=== PATIENT | female | born 1975 | race Caucasian/White ===

== ENCOUNTER → 2018-02-03 | Outpatient (CLI) | payer OTHER ==
[2018-02-03 17:49] LABS: BASOPHILS ABSOLUTE AUTO 0.09 K/mm3 (0.00-0.23); BASOPHILS PERCENT AUTO 1 % (0-2); EOSINOPHILS ABSOLUTE AUTO 0.18 K/mm3 (0.00-0.68); EOSINOPHILS PERCENT AUTO 2 % (0-6); Hematocrit 41.5 % (33.0-51.0); Hemoglobin 13.3 g/dL (11.5-16.0); IMMATURE GRAN ABSOLUTE AUTO 0.04 K/mm3 (0.00-0.10); IMMATURE GRAN PERCENT AUTO 0 % (0-1); LYMPHOCYTES ABSOLUTE AUTO 2.11 K/mm3 (0.84-5.20); LYMPHOCYTES PERCENT AUTO 20 % (21-46); MONOCYTES ABSOLUTE AUTO 0.74 K/mm3 (0.16-1.47); MONOCYTES PERCENT AUTO 7 % (4-13); Mean Corpuscular HGB 28.7 pg (26.0-34.0); Mean Corpuscular Volume 89 fL (80-100); Mean Platelet Volume 12.1 fL (9.1-12.4); NEUTROPHILS ABSOLUTE AUTO 7.32 K/mm3 (1.96-9.15); NEUTROPHILS PERCENT AUTO 70 % (41-73); Platelet Count 267 K/mm3 (150-400); RDW Coefficient Variation 15.3 % (11.7-14.2); RDW Standard Deviation 50.5 fL (35.1-46.3); Red Blood Cell Count 4.64 M/mm3 (3.80-5.20); White Blood Cell Count 10.48 K/mm3 (4.00-11.30)
[2018-02-03 18:32] LABS: Alanine Aminotransfer (ALT/SGP 24 U/L (12-78); Albumin, Blood 3.6 g/dL (3.4-5.0); Albumin/Globulin Ratio 1.1 (0.8-1.8); Alk Phos 59 U/L (50-136); Anion Gap 7 mmol/L (6-16); Aspartate Aminotrans (AST/SGOT 16 U/L (12-37); Bilirubin, Total 0.3 mg/dL (0.1-1.0); Blood Urea Nitrogen 8 mg/dL (8-24); Bun/Creatinine Ratio 9.4 (12.0-20.0); CO2, Blood 28 mmol/L (21-32); Calcium, Blood 8.8 mg/dL (8.5-10.1); Chloride, Blood 106 mmol/L (98-108); Creatinine, Blood 0.85 mg/dL (0.40-1.00); Free Thyroxine 0.46 ng/dL (0.70-1.60); Globulin, Blood 3.4 g/dL (2.2-4.0); Glomerular Filtration Rate >60 (60-); Glucose, Blood 82 mg/dL (70-99); Potassium, Blood 4.5 mmol/L (3.5-5.5); Sodium, Blood 141 mmol/L (136-145)
== END | disposition home or self-care (01) ==
LOC: LAB SHORT 11:00 → LAB 11:00
PROVIDERS: Nurse Practitioner Adult Health
DX: E03.9 Hypothyroidism, unspecified (principal); E78.5 Hyperlipidemia, unspecified; G43.709 Chronic migraine without aura, not intractable, without status migrainosus; K21.9 Gastro-esophageal reflux disease without esophagitis; M62.830 Muscle spasm of back; R73.03 Prediabetes; M54.5 Low back pain
CPT/HCPCS: 80053; 84439; 84443; 85025; 87077; 87086; 87186

== ENCOUNTER 2018-04-08 08:43 | Day surgery (SDC) | payer OTHER | END 2018-04-08 22:36 | disposition home or self-care (01) | LOC: ORSCMMR 08:43 → ORD 09:30 → ORSCMMR 09:30 | PROVIDERS: Internal Medicine Gastroenterology | PROC: 0DB98ZX Excision of Duodenum, Via Natural or Artificial Opening Endoscopic, Diagnostic (ICD-10-PCS; principal; 2018-04-08 09:30) | PROC: 0DB88ZX Excision of Small Intestine, Via Natural or Artificial Opening Endoscopic, Diagnostic (ICD-10-PCS; principal; 2018-04-08 09:30) | PROC: 0DB58ZX Excision of Esophagus, Via Natural or Artificial Opening Endoscopic, Diagnostic (ICD-10-PCS; principal; 2018-04-08 09:30) | PROC: 0DB68ZX Excision of Stomach, Via Natural or Artificial Opening Endoscopic, Diagnostic (ICD-10-PCS; principal; 2018-04-08 09:30) | PROC: 0DB48ZX Excision of Esophagogastric Junction, Via Natural or Artificial Opening Endoscopic, Diagnostic (ICD-10-PCS; principal; 2018-04-08 09:30) | DX: K21.9 Gastro-esophageal reflux disease without esophagitis (principal); B96.81 Helicobacter pylori [H. pylori] as the cause of diseases classified elsewhere; K31.9 Disease of stomach and duodenum, unspecified; K44.9 Diaphragmatic hernia without obstruction or gangrene; E03.9 Hypothyroidism, unspecified; E78.00 Pure hypercholesterolemia, unspecified; Z79.899 Other long term (current) drug therapy | CPT/HCPCS: 88305; 88342; J7030 ==

== ENCOUNTER → 2018-11-16 | Outpatient (CLI) | payer OTHER ==
[2018-11-16 20:00] LABS: Free Thyroxine 0.83 ng/dL (0.70-1.60)
[2018-11-16 20:03] LABS: Thyroid Stimulating Hormone 5.62 uIU/mL (0.360-4.800)
== END ==
LOC: LAB 18:17 → LAB SHORT 18:17
PROVIDERS: Nurse Practitioner Family
DX: E03.9 Hypothyroidism, unspecified (principal)
CPT/HCPCS: 84439; 84443

== ENCOUNTER → 2018-12-06 | Outpatient (CLI) | payer OTHER ==
[2018-12-06 19:20] LABS: BASOPHILS ABSOLUTE AUTO 0.05 K/mm3 (0.00-0.23); BASOPHILS PERCENT AUTO 1 % (0-2); EOSINOPHILS ABSOLUTE AUTO 0.06 K/mm3 (0.00-0.68); EOSINOPHILS PERCENT AUTO 1 % (0-6); Hemoglobin 12.1 g/dL (11.5-16.0); IMMATURE GRAN ABSOLUTE AUTO 0.02 K/mm3 (0.00-0.10); IMMATURE GRAN PERCENT AUTO 0 % (0-1); LYMPHOCYTES ABSOLUTE AUTO 1.43 K/mm3 (0.84-5.20); LYMPHOCYTES PERCENT AUTO 19 % (21-46); MONOCYTES ABSOLUTE AUTO 0.41 K/mm3 (0.16-1.47); MONOCYTES PERCENT AUTO 6 % (4-13); Mean Corpuscular HGB 27.6 pg (26.0-34.0); Mean Corpuscular Volume 89 fL (80-100); NEUTROPHILS ABSOLUTE AUTO 5.46 K/mm3 (1.96-9.15); NEUTROPHILS PERCENT AUTO 74 % (41-73); Platelet Count 198 K/mm3 (150-400); RDW Coefficient Variation 14.6 % (11.7-14.2); RDW Standard Deviation 47.8 fL (35.1-46.3); Red Blood Cell Count 4.39 M/mm3 (3.80-5.20); White Blood Cell Count 7.43 K/mm3 (4.00-11.30)
[2018-12-06 19:24] LABS: Mean Platelet Volume 13.1 fL (9.1-12.4)
[2018-12-06 19:39] LABS: Alanine Aminotransfer (ALT/SGP 28 U/L (12-78); Albumin, Blood 3.6 g/dL (3.4-5.0); Albumin/Globulin Ratio 1.1 (0.8-1.8); Alk Phos 59 U/L (50-136); Anion Gap 5 mmol/L (6-16); Aspartate Aminotrans (AST/SGOT 16 U/L (12-37); Bilirubin, Total 0.3 mg/dL (0.1-1.0); Blood Urea Nitrogen 8 mg/dL (8-24); Bun/Creatinine Ratio 8.9 (12.0-20.0); CHOL/HDL RATIO 3.7; CO2, Blood 25 mmol/L (21-32); Calcium, Blood 8.7 mg/dL (8.5-10.1); Chloride, Blood 110 mmol/L (98-108); Cholesterol 166 mg/dL (50-200); Globulin, Blood 3.4 g/dL (2.2-4.0); Glomerular Filtration Rate >60 (60-); Glucose, Blood 83 mg/dL (70-99); HDL Cholesterol 45 mg/dL (>39); LDL/HDL RATIO 2.2; Low Density Lipoprotein Chol 101 mg/dL (0-110); Potassium, Blood 3.9 mmol/L (3.5-5.5); Sodium, Blood 140 mmol/L (136-145); Triglycerides 99 mg/dL (30-160); Very Low Density Lipoprot Chol 19 mg/dL (6-32)
== END ==
LOC: LAB SHORT 18:45 → LAB 18:45
PROVIDERS: Nurse Practitioner Family
DX: E78.2 Mixed hyperlipidemia (principal); R73.03 Prediabetes
CPT/HCPCS: 80053; 80061; 85025

== ENCOUNTER 2018-12-21 11:13 | Emergency (ER) | payer OTHER ==
[~2018-12-21] VITALS: Ht 157.5 cm; Wt 68.0 kg
[2018-12-21] MEDS ORDERED: Norco 5-325 Ta1 EACH PO (12:13)
== END 2018-12-21 12:44 | disposition home or self-care (01) ==
LOC: ER 11:13
DX: S62.316A Displaced fracture of base of fifth metacarpal bone, right hand, initial encounter for closed fracture (principal); W22.8XXA Striking against or struck by other objects, initial encounter; Z88.0 Allergy status to penicillin; Z88.8 Allergy status to other drugs, medicaments and biological substances
CPT/HCPCS: 29125; 73130; 99283-25; A9270-GY

== ENCOUNTER → 2019-03-24 | Outpatient (CLI) | payer OTHER ==
[~2019-03-24] MED LIST: Norco 5-325 Ta1 EACH PO
[2019-03-24 18:09] LABS: BASOPHILS ABSOLUTE AUTO 0.06 K/mm3 (0.00-0.23); BASOPHILS PERCENT AUTO 1 % (0-2); EOSINOPHILS ABSOLUTE AUTO 0.13 K/mm3 (0.00-0.68); EOSINOPHILS PERCENT AUTO 2 % (0-6); Hematocrit 39.4 % (33.0-51.0); Hemoglobin 12.1 g/dL (11.5-16.0); IMMATURE GRAN ABSOLUTE AUTO 0.01 K/mm3 (0.00-0.10); IMMATURE GRAN PERCENT AUTO 0 % (0-1); LYMPHOCYTES ABSOLUTE AUTO 2.11 K/mm3 (0.84-5.20); LYMPHOCYTES PERCENT AUTO 35 % (21-46); MONOCYTES ABSOLUTE AUTO 0.53 K/mm3 (0.16-1.47); MONOCYTES PERCENT AUTO 9 % (4-13); Mean Corpuscular HGB 27.3 pg (26.0-34.0); Mean Corpuscular HGB Conc 30.7 g/dL (31.5-36.5); Mean Corpuscular Volume 89 fL (80-100); NEUTROPHILS PERCENT AUTO 53 % (41-73); Platelet Count 180 K/mm3 (150-400); RDW Coefficient Variation 15.9 % (11.7-14.2); RDW Standard Deviation 52.8 fL (35.1-46.3); Red Blood Cell Count 4.43 M/mm3 (3.80-5.20); White Blood Cell Count 6.04 K/mm3 (4.00-11.30)
[2019-03-24 18:11] LABS: Mean Platelet Volume 13.5 fL (9.1-12.4)
[2019-03-24 18:42] LABS: Alanine Aminotransfer (ALT/SGP 21 U/L (12-78); Albumin, Blood 3.7 g/dL (3.4-5.0); Albumin/Globulin Ratio 1.1 (0.8-1.8); Alk Phos 54 U/L (50-136); Anion Gap 7 mmol/L (6-16); Aspartate Aminotrans (AST/SGOT 20 U/L (12-37); Bilirubin, Total 0.3 mg/dL (0.1-1.0); Blood Urea Nitrogen 10 mg/dL (8-24); Bun/Creatinine Ratio 9.7 (12.0-20.0); CHOL/HDL RATIO 5.7; CO2, Blood 24 mmol/L (21-32); Calcium, Blood 8.6 mg/dL (8.5-10.1); Chloride, Blood 110 mmol/L (98-108); Cholesterol 244 mg/dL (50-200); Creatinine, Blood 1.03 mg/dL (0.40-1.00); Free Thyroxine 0.71 ng/dL (0.70-1.60); Globulin, Blood 3.5 g/dL (2.2-4.0); Glomerular Filtration Rate >60 (60-); Glucose, Blood 93 mg/dL (70-99); HDL Cholesterol 43 mg/dL (>39); Low Density Lipoprotein Chol 172 mg/dL (0-110); Potassium, Blood 4.1 mmol/L (3.5-5.5); Sodium, Blood 141 mmol/L (136-145); Total Protein, Blood 7.2 g/dL (6.4-8.2); Triglycerides 144 mg/dL (30-160); Very Low Density Lipoprot Chol 28 mg/dL (6-32)
== END | disposition home or self-care (01) ==
LOC: LAB 17:19 → LAB SHORT 17:19
PROVIDERS: Nurse Practitioner Family
DX: E78.5 Hyperlipidemia, unspecified (principal); E03.9 Hypothyroidism, unspecified
CPT/HCPCS: 80053; 80061; 84439; 84443; 85025

== ENCOUNTER 2019-10-10 10:56 | Emergency (ER) | payer OTHER ==
[~2019-10-10] VITALS: Ht 157.5 cm; Wt 63.5 kg
[2019-10-10 11:37] LABS: BASOPHILS ABSOLUTE AUTO 0.07 K/mm3 (0.00-0.23); BASOPHILS PERCENT AUTO 1 % (0-2); EOSINOPHILS ABSOLUTE AUTO 0.11 K/mm3 (0.00-0.68); EOSINOPHILS PERCENT AUTO 2 % (0-6); Hematocrit 38.3 % (33.0-51.0); Hemoglobin 12.2 g/dL (11.5-16.0); IMMATURE GRAN ABSOLUTE AUTO 0.01 K/mm3 (0.00-0.10); IMMATURE GRAN PERCENT AUTO 0 % (0-1); LYMPHOCYTES ABSOLUTE AUTO 2.08 K/mm3 (0.84-5.20); LYMPHOCYTES PERCENT AUTO 28 % (21-46); MONOCYTES ABSOLUTE AUTO 0.51 K/mm3 (0.16-1.47); MONOCYTES PERCENT AUTO 7 % (4-13); Mean Corpuscular HGB 27.9 pg (26.0-34.0); Mean Corpuscular HGB Conc 31.9 g/dL (31.5-36.5); Mean Corpuscular Volume 87 fL (80-100); Mean Platelet Volume 11.9 fL (9.1-12.4); NEUTROPHILS ABSOLUTE AUTO 4.73 K/mm3 (1.96-9.15); NEUTROPHILS PERCENT AUTO 63 % (41-73); Platelet Count 241 K/mm3 (150-400); RDW Standard Deviation 51.1 fL (35.1-46.3); Red Blood Cell Count 4.38 M/mm3 (3.80-5.20); White Blood Cell Count 7.51 K/mm3 (4.00-11.30)
[2019-10-10 12:08] LABS: Alanine Aminotransfer (ALT/SGP 28 U/L (12-78); Albumin, Blood 3.5 g/dL (3.4-5.0); Alk Phos 48 U/L (50-136); Anion Gap 10 mmol/L (6-16); Aspartate Aminotrans (AST/SGOT 27 U/L (12-37); Bilirubin, Total 0.2 mg/dL (0.1-1.0); Blood Urea Nitrogen 13 mg/dL (8-24); Bun/Creatinine Ratio 13.1 (12.0-20.0); CO2, Blood 22 mmol/L (21-32); Calcium, Blood 8.7 mg/dL (8.5-10.1); Chloride, Blood 108 mmol/L (98-108); Creatinine, Blood 0.99 mg/dL (0.40-1.00); Globulin, Blood 3.6 g/dL (2.2-4.0); Glomerular Filtration Rate >60 (60-); Glucose, Blood 91 mg/dL (70-99); Sodium, Blood 140 mmol/L (136-145); Total Protein, Blood 7.1 g/dL (6.4-8.2); Troponin I <0.015 ng/mL (0.000-0.040)
[2019-10-10] MEDS ORDERED: IBUP600 PO (14:59)
[2019-10-10] MEDS ORDERED: PANT40 PO (15:16)
[2019-10-10] MEDS ORDERED: TOPI50 PO (15:16)
[2019-10-10] MEDS ORDERED: AMIT50 PO (15:16)
[2019-10-10] MEDS ORDERED: LEVSOD112 PO (15:16)
== END 2019-10-10 15:14 | disposition home or self-care (01) ==
LOC: ER 10:56
PROVIDERS: Emergency Medicine
DX: R07.9 Chest pain, unspecified (principal); E03.9 Hypothyroidism, unspecified; Z88.0 Allergy status to penicillin; Z88.6 Allergy status to analgesic agent
CPT/HCPCS: 71046; 80053; 84484; 85025; 93005; 93010; 96374-59; 99285-25; J2405

== ENCOUNTER → 2019-10-26 | Outpatient (CLI) | payer OTHER ==
[~2019-10-26] MED LIST changes: +AMIT50 PO; +IBUP600 PO; +LEVSOD112 PO; +PANT40 PO; +TOPI50 PO
[2019-10-26 18:03] LABS: Alanine Aminotransfer (ALT/SGP 25 U/L (12-78); Albumin, Blood 3.9 g/dL (3.4-5.0); Albumin/Globulin Ratio 1.1 (0.8-1.8); Alk Phos 50 U/L (50-136); Anion Gap 1 mmol/L (6-16); Aspartate Aminotrans (AST/SGOT 25 U/L (12-37); Bilirubin, Total 0.3 mg/dL (0.1-1.0); Blood Urea Nitrogen 11 mg/dL (8-24); Bun/Creatinine Ratio 11.6 (12.0-20.0); CHOL/HDL RATIO 5.2; CO2, Blood 28 mmol/L (21-32); Calcium, Blood 8.7 mg/dL (8.5-10.1); Chloride, Blood 107 mmol/L (98-108); Cholesterol 280 mg/dL (50-200); Creatinine, Blood 0.95 mg/dL (0.40-1.00); Free Thyroxine 0.52 ng/dL (0.70-1.60); Globulin, Blood 3.6 g/dL (2.2-4.0); Glomerular Filtration Rate >60 (60-); Glucose, Blood 79 mg/dL (70-99); HDL Cholesterol 54 mg/dL (>39); LDL Direct Measurement 196 mg/dL (0-130); LDL/HDL RATIO 3.9; Low Density Lipoprotein Chol 208 mg/dL (0-110); Magnesium, Blood 2.1 mg/dL (1.6-2.4); Potassium, Blood 4.3 mmol/L (3.5-5.5); Sodium, Blood 136 mmol/L (136-145); Total Protein, Blood 7.5 g/dL (6.4-8.2); Triglycerides 89 mg/dL (30-160); Very Low Density Lipoprot Chol 17 mg/dL (6-32)
== END | disposition home or self-care (01) ==
LOC: LAB 16:33 → LAB SHORT 16:33
PROVIDERS: Nurse Practitioner Family
DX: E03.9 Hypothyroidism, unspecified (principal); I20.9 Angina pectoris, unspecified; E78.5 Hyperlipidemia, unspecified; R07.9 Chest pain, unspecified; R06.02 Shortness of breath; R94.30 Abnormal result of cardiovascular function study, unspecified
CPT/HCPCS: 80053; 80061; 83721; 83735; 83880; 84439; 84443

== ENCOUNTER 2019-11-10 07:59 | Day surgery (SDC) | payer OTHER ==
[~2019-11-10] VITALS: Ht 160 cm; Wt 67.0 kg
[2019-11-10] MEDS ORDERED: CLOP75 PO (08:28)
[2019-11-10] MEDS ORDERED: ATOR80 PO (08:28)
== END 2019-11-10 09:48 | disposition home or self-care (01) ==
LOC: CT 07:59 → ORD 07:59 → CT 09:00 → ORD 09:48
DX: R07.9 Chest pain, unspecified (principal); I10 Essential (primary) hypertension; E78.5 Hyperlipidemia, unspecified; E11.9 Type 2 diabetes mellitus without complications; K21.9 Gastro-esophageal reflux disease without esophagitis; E03.9 Hypothyroidism, unspecified; Z79.899 Other long term (current) drug therapy; Z88.6 Allergy status to analgesic agent; Z88.0 Allergy status to penicillin; Z87.891 Personal history of nicotine dependence; Z82.49 Family history of ischemic heart disease and other diseases of the circulatory system
CPT/HCPCS: 75574; Q9967

== ENCOUNTER 2020-09-07 17:37 | Emergency (ER) | payer OTHER ==
[~2020-09-07] VITALS: Ht 157.5 cm; Wt 64.4 kg
[~2020-09-07 17:37] MED LIST changes: +ATOR80 PO; +CLOP75 PO
== END 2020-09-07 21:22 | disposition home or self-care (01) ==
LOC: ER 17:37
DX: S61.213A Laceration without foreign body of left middle finger without damage to nail, initial encounter (principal); Z88.0 Allergy status to penicillin; Z88.2 Allergy status to sulfonamides; W25.XXXA Contact with sharp glass, initial encounter; Y92.89 Other specified places as the place of occurrence of the external cause; Y99.0 Civilian activity done for income or pay
CPT/HCPCS: 12001; 73130; 99282-25

== ENCOUNTER → 2020-11-05 | Outpatient (CLI) | payer OTHER ==
[~2020-11-05] MED LIST changes: +CLOP75
[2020-11-06 12:50] LABS: Source, Urine Clean Catch
[2020-11-06 13:03] LABS: White Blood Cells, Urine 0-2 /hpf (0-5)
[2020-11-06 13:04] LABS: Bacteria Rare /hpf; Squamous Epithelial Cells Rare /hpf (Few)
== END ==
LOC: LAB SHORT 16:00 → PLD 16:00
PROVIDERS: Nurse Practitioner Family
DX: R35.0 Frequency of micturition (principal); R31.9 Hematuria, unspecified
CPT/HCPCS: 81015; 87077; 87086; 87186

== ENCOUNTER 2020-12-28 12:56 | Observation (INO) | payer OTHER ==
[~2020-12-28] VITALS: Ht 160 cm; Wt 70.3 kg
[~2020-12-28 12:56] MED LIST changes: -CLOP75
[2020-12-28] MEDS ORDERED: CLOP75 (13:52)
[2020-12-28 13:57] LABS: Source, Urine Clean Catch
[2020-12-28 14:05] LABS: BASOPHILS PERCENT AUTO 1 % (0-2); EOSINOPHILS ABSOLUTE AUTO 0.04 K/mm3 (0.00-0.68); EOSINOPHILS PERCENT AUTO 0 % (0-6); Hematocrit 40.9 % (33.0-51.0); Hemoglobin 13.4 g/dL (11.5-16.0); IMMATURE GRAN ABSOLUTE AUTO 0.04 K/mm3 (0.00-0.10); IMMATURE GRAN PERCENT AUTO 0 % (0-1); LYMPHOCYTES ABSOLUTE AUTO 2.13 K/mm3 (0.84-5.20); LYMPHOCYTES PERCENT AUTO 21 % (21-46); MONOCYTES ABSOLUTE AUTO 0.46 K/mm3 (0.16-1.47); MONOCYTES PERCENT AUTO 5 % (4-13); Mean Corpuscular HGB 28.3 pg (26.0-34.0); Mean Corpuscular HGB Conc 32.8 g/dL (31.5-36.5); Mean Corpuscular Volume 86 fL (80-100); Mean Platelet Volume 11.3 fL (9.1-12.4); NEUTROPHILS ABSOLUTE AUTO 7.56 K/mm3 (1.96-9.15); NEUTROPHILS PERCENT AUTO 73 % (41-73); Platelet Count 268 K/mm3 (150-400); RDW Coefficient Variation 16.5 % (11.7-14.2); RDW Standard Deviation 51.8 fL (35.1-46.3); Red Blood Cell Count 4.74 M/mm3 (3.80-5.20); White Blood Cell Count 10.33 K/mm3 (4.00-11.30)
[2020-12-28 14:05] LABS: Appearance, Urine Hazy (Clear); Bilirubin, Urine Neg (Neg); Blood, Urine 1+ (Neg); Color, Urine Yellow (P-Yellow); Glucose Qualitative, Urine Neg (Neg); Ketones, Urine Neg (Neg); Leukocyte Esterase, Urine 3+ (Neg); Nitrite, Urine Pos (Neg); Protein, Urine Neg (Neg); Urobilinogen, Urine NORM (Normal)
[2020-12-28 14:13] LABS: White Blood Cells, Urine 25-50 /hpf (0-5)
[2020-12-28 14:14] LABS: Bacteria Many /hpf; Squamous Epithelial Cells Few /hpf (Few)
[2020-12-28 14:19] LABS: U Amphetamine Screen Not Detected; U Barbituate Screen Not Detected; U Benzodiazapine Screen Not Detected; U Buprenorphine Screen Not Detected; U Cannabinoids Screen DETECTED; U Cocaine Screen Not Detected; U Methadone Screen Not Detected; U Methamphetamine Screen Not Detected; U Opiates Screen Not Detected; U Oxycodone Screen Not Detected; U Phencyclidine Screen Not Detected; U Propoxyphene Screen Not Detected
[2020-12-28 14:36] LABS: Alanine Aminotransfer (ALT/SGP 32 U/L (12-78); Alk Phos 65 U/L (50-136); Anion Gap 5 mmol/L (6-16); Aspartate Aminotrans (AST/SGOT 26 U/L (12-37); Bilirubin, Total 0.4 mg/dL (0.1-1.0); Blood Urea Nitrogen 10 mg/dL (8-24); Bun/Creatinine Ratio 9.9 (12.0-20.0); CO2, Blood 24 mmol/L (21-32); Calcium, Blood 9.1 mg/dL (8.5-10.1); Chloride, Blood 106 mmol/L (98-108); Creatinine, Blood 1.01 mg/dL (0.40-1.00); Ethanol (Alcohol), Blood, Med <3 mg/dL; Globulin, Blood 3.9 g/dL (2.2-4.0); Glomerular Filtration Rate >60 (60-); Glucose, Blood 96 mg/dL (70-99); Potassium, Blood 3.9 mmol/L (3.5-5.5); Salicylate 4.9 mg/dL (2.8-20.0); Sodium, Blood 135 mmol/L (136-145); Total Protein, Blood 7.9 g/dL (6.4-8.2)
[2020-12-28 14:39] LABS: Acetaminophen, Random <2.0 ug/mL (10.0-30.0)
[2020-12-28 16:10] LABS: Influenza A, PCR NEGATIVE (NEGATIVE); Influenza B, PCR NEGATIVE (NEGATIVE); Resp Syncytial Virus, PCR NEGATIVE (NEGATIVE); SARS-Cov-2 (COVID-19) PCR, MMC NEGATIVE (NEGATIVE)
== END 2020-12-28 22:53 ==
LOC: ER 12:56 → EOR 12:57
PROVIDERS: Physician Assistant; ADMIT Emergency Medicine
DX: R45.851 Suicidal ideations (principal); F32.9 Major depressive disorder, single episode, unspecified; N39.0 Urinary tract infection, site not specified; B96.20 Unspecified Escherichia coli [E. coli] as the cause of diseases classified elsewhere; F12.90 Cannabis use, unspecified, uncomplicated; Z20.822 Contact with and (suspected) exposure to COVID-19; Z72.0 Tobacco use; Z88.0 Allergy status to penicillin; Z88.8 Allergy status to other drugs, medicaments and biological substances; Z79.02 Long term (current) use of antithrombotics/antiplatelets
CPT/HCPCS: 0241U; 80053; 81001; 81025; 85025; 87077; 87086; 87186; 99285; A9270; G0378; G0480

== ENCOUNTER → 2021-09-05 | Outpatient (CLI) | payer OTHER ==
[~2021-09-05] MED LIST changes: +CLOP75
[2021-09-05 18:11] LABS: BASOPHILS ABSOLUTE AUTO 0.13 K/mm3 (0.00-0.23); BASOPHILS PERCENT AUTO 2 % (0-2); EOSINOPHILS ABSOLUTE AUTO 0.12 K/mm3 (0.00-0.68); EOSINOPHILS PERCENT AUTO 1 % (0-6); Hematocrit 43.4 % (33.0-51.0); Hemoglobin 13.9 g/dL (11.5-16.0); IMMATURE GRAN ABSOLUTE AUTO 0.03 K/mm3 (0.00-0.10); IMMATURE GRAN PERCENT AUTO 0 % (0-1); LYMPHOCYTES ABSOLUTE AUTO 2.12 K/mm3 (0.84-5.20); LYMPHOCYTES PERCENT AUTO 25 % (21-46); MONOCYTES ABSOLUTE AUTO 0.45 K/mm3 (0.16-1.47); MONOCYTES PERCENT AUTO 5 % (4-13); Mean Corpuscular HGB 26.5 pg (26.0-34.0); Mean Corpuscular Volume 83 fL (80-100); Mean Platelet Volume 12.7 fL (9.1-12.4); NEUTROPHILS PERCENT AUTO 67 % (41-73); Platelet Count 237 K/mm3 (150-400); RDW Coefficient Variation 17.2 % (11.7-14.2); RDW Standard Deviation 52.6 fL (35.1-46.3); Red Blood Cell Count 5.24 M/mm3 (3.80-5.20); White Blood Cell Count 8.55 K/mm3 (4.00-11.30)
== END | disposition home or self-care (01) ==
LOC: LAB SHORT 09:15 → LAB 09:15
PROVIDERS: Family Medicine
DX: Z00.00 Encounter for general adult medical examination without abnormal findings (principal); E03.9 Hypothyroidism, unspecified
CPT/HCPCS: 85025

== ENCOUNTER → 2022-01-09 | Outpatient (CLI) | payer OTHER | END | disposition home or self-care (01) | LOC: LAB SHORT 08:41 | DX: E03.9 Hypothyroidism, unspecified (principal) | CPT/HCPCS: 84443 ==

== ENCOUNTER 2022-11-24 16:25 | Inpatient (IN) | payer OTHER ==
[~2022-11-24] VITALS: Ht 175.3 cm; Wt 74.9 kg
[~2022-11-24 16:25] MED LIST changes: +AMOCLA875 PO; +BUSP10 PO; +CYCL10 PO; +HYDPAM25 PO; +OMEP20ER PO; +PARO30 PO; +Synthroid200 MCG PO; +VOLTAREN ARTHRI20 GM TOP
[2022-11-24 16:59] LABS: Base Excess Venous -3.9 mmol/L; PCO2 Venous 40.9 mmHg (38-42); pH Blood Venous 7.34 (7.34-7.37)
[2022-11-24 17:09] LABS: BASOPHILS ABSOLUTE AUTO 0.07 K/mm3 (0.00-0.23); BASOPHILS PERCENT AUTO 1 % (0-2); EOSINOPHILS PERCENT AUTO 0 % (0-6); Hematocrit 45.5 % (33.0-51.0); Hemoglobin 15.1 g/dL (11.5-16.0); IMMATURE GRAN ABSOLUTE AUTO 0.06 K/mm3 (0.00-0.10); IMMATURE GRAN PERCENT AUTO 0 % (0-1); LYMPHOCYTES ABSOLUTE AUTO 3.13 K/mm3 (0.84-5.20); LYMPHOCYTES PERCENT AUTO 21 % (21-46); MONOCYTES ABSOLUTE AUTO 0.48 K/mm3 (0.16-1.47); MONOCYTES PERCENT AUTO 3 % (4-13); Mean Corpuscular HGB 27.4 pg (26.0-34.0); Mean Corpuscular HGB Conc 33.2 g/dL (31.5-36.5); Mean Corpuscular Volume 82 fL (80-100); Mean Platelet Volume 11.4 fL (9.1-12.4); NEUTROPHILS PERCENT AUTO 75 % (41-73); Platelet Count 301 K/mm3 (150-400); RDW Coefficient Variation 17.8 % (11.7-14.2); RDW Standard Deviation 54.1 fL (35.1-46.3); Red Blood Cell Count 5.52 M/mm3 (3.80-5.20); White Blood Cell Count 14.74 K/mm3 (4.00-11.30)
[2022-11-24 17:30] LABS: Acetaminophen, Random <2.0 ug/mL (10.0-30.0); Ethanol (Alcohol), Blood, Med 295 mg/dL; Magnesium, Blood 2.3 mg/dL (1.6-2.4); Salicylate 5.3 mg/dL (2.8-20.0)
[2022-11-24 17:31] LABS: Alanine Aminotransfer (ALT/SGP 41 U/L (12-78); Albumin, Blood 3.2 g/dL (3.4-5.0); Albumin/Globulin Ratio 0.9 (0.8-1.8); Alk Phos 91 U/L (50-136); Anion Gap 7 mmol/L (6-16); Aspartate Aminotrans (AST/SGOT 35 U/L (12-37); Bilirubin, Total 0.3 mg/dL (0.1-1.0); Blood Urea Nitrogen 8 mg/dL (8-24); Bun/Creatinine Ratio 11.4 (12.0-20.0); CO2, Blood 21 mmol/L (21-32); Calcium, Blood 8.5 mg/dL (8.5-10.1); Chloride, Blood 113 mmol/L (98-108); Globulin, Blood 3.5 g/dL (2.2-4.0); Glomerular Filtration Rate 108 (60-); Glucose, Blood 138 mg/dL (70-99); Potassium, Blood 3.8 mmol/L (3.5-5.5); Sodium, Blood 141 mmol/L (136-145); Thyroid Stimulating Hormone 0.006 uIU/mL (0.360-4.800); Total Protein, Blood 6.7 g/dL (6.4-8.2)
[2022-11-24 17:35] LABS: Influenza A, PCR NEGATIVE (NEGATIVE); Influenza B, PCR NEGATIVE (NEGATIVE); Resp Syncytial Virus, PCR NEGATIVE (NEGATIVE); SARS-Cov-2 (COVID-19) PCR, MMC NEGATIVE (NEGATIVE)
[2022-11-24 20:24] LABS: Source, Urine Clean Catch
[2022-11-24 20:34] LABS: Bilirubin, Urine Neg (Neg); Blood, Urine Neg (Neg); Glucose Qualitative, Urine Neg (Neg); Ketones, Urine Neg (Neg); Leukocyte Esterase, Urine Neg (Neg); Nitrite, Urine Neg (Neg); Protein, Urine Neg (Neg); Urobilinogen, Urine NORM (Normal)
[2022-11-24 20:59] LABS: Appearance, Urine Clear (Clear); Color, Urine Pale Yellow (P-Yellow)
[2022-11-24 21:17] LABS: U Amphetamine Screen Not Detected; U Barbituate Screen Not Detected; U Benzodiazapine Screen Not Detected; U Buprenorphine Screen Not Detected; U Cannabinoids Screen DETECTED; U Cocaine Screen Not Detected; U Methadone Screen Not Detected; U Methamphetamine Screen Not Detected; U Opiates Screen Not Detected; U Oxycodone Screen Not Detected; U Phencyclidine Screen Not Detected; U Propoxyphene Screen Not Detected
[2022-11-24 21:47] LABS: Prothrombin Time Results 10.5 Sec (9.7-11.5)
--- NOTE | 2022-11-24 23:09 | NUR ---
PATIENT TO ROOM FROM ED AT 2109, TAKEN OUT OF TATs AND WALKED TO BED. PATIENT IS CALM AND COOPERATIVE AT THIS TIME. ALERT AND ORIENTED X3. DENIES SI AT THIS TIME. STATES "I TOOK A BUNCH OF NAPROXEN AND DRANK PROBABLY AROUND 2 BOTTLES OF WHISKEY AROUND [id number] THIS MORNING". 1:1 SITTER AT THE DOORWAY. ROOM CLEARED OUT OF ANYTHING NOT NEEDED. PATIENT ON SATS 96%. HR ST 109, BP STABLE WITH MAP >65. LR INF AT 150 MLS/HR. POISON CONTROL CALLED AND WILL CALL BACK LATER WHEN LABS RESULT. CALLED AND LABS ORDERED PER POISON CONTROL RECOMMENDATIONS. CALL LIGHT IN REACH
[2022-11-24 23:36] LABS: Calcium, Blood 7.8 mg/dL (8.5-10.1); Creatinine, Blood 0.6 mg/dL (0.40-1.00); Potassium, Blood 4.9 mmol/L (3.5-5.5); Salicylate 4.1 mg/dL (2.8-20.0)
[2022-11-25 05:30] LABS: Hematocrit 40.7 % (33.0-51.0); Hemoglobin 13.7 g/dL (11.5-16.0); Mean Corpuscular HGB 27.3 pg (26.0-34.0); Mean Corpuscular HGB Conc 33.7 g/dL (31.5-36.5); Mean Corpuscular Volume 81 fL (80-100); Mean Platelet Volume 10.9 fL (9.1-12.4); Platelet Count 255 K/mm3 (150-400); RDW Standard Deviation 53.2 fL (35.1-46.3); Red Blood Cell Count 5.01 M/mm3 (3.80-5.20); White Blood Cell Count 14.88 K/mm3 (4.00-11.30)
--- NOTE | 2022-11-25 06:10 | NUR ---
SHIFT SUMMARY PATIENT IS ALERT AND ORIENTED X4. DENIES SI. 02 SATS 94% ON RA. HR ST 100-130. BP STABLE. DENIES CP/PRESSURE. UP TO TOILET WITH ASSIST. DENIES HEADACHE, NO TREMORS, DENIES HALLUCINATIONS. PATIENT PLEASANT AND COOPERATIVE. 1:1 SITTER AT DOOR
[2022-11-25 06:44] LABS: Bun/Creatinine Ratio 12.1 (12.0-20.0); Calcium, Blood 8.1 mg/dL (8.5-10.1); Creatinine, Blood 0.58 mg/dL (0.40-1.00); Potassium, Blood 3.9 mmol/L (3.5-5.5)
--- NOTE | 2022-11-25 10:07 | NUR ---
Assumed care at approximately 0700. Pt sleeping at time of report, on RA. 1:1 sitter at doorway. No acute needs, continue to monitor.
--- NOTE | 2022-11-25 11:16 | NUR ---
Patient immediately shares about her suicide attempt, her struggles with depression that overcome her and her concerns about her psych medications not being effective with her particular needs. We talk about healing activities, support systems, her coping skills and her [facility] ivett. We talk about tools for addressing spirit, mind and body needs and about the courage she has today to keeping moving forward and contending for answers and hope. I normalize her feelings and experience, reinforce helpful attitudes and practices and provide therapeutic listening, theological insights and prayer. Patient responded well and showed signs of increased hope.
--- NOTE | 2022-11-25 18:23 | NUR ---
Shift summary. Pt rested in bed throughout shift. On RA, alert and oriented, denies SI. Pt independent in room, able to get up and move around without assistance. Saline locked, no fluids infusing. Pt uses commode in room independently. Plan is to see Dr. Ritchie tomorrow. Pt tachycardic throughout shift, VS otherwise stable. See assessment for further details. Will continue to monitor and report off to nightshift RN.
--- NOTE | 2022-11-25 20:18 | NUR ---
ASSUMED CARE AT 1900 PATIENT IS ALERT AND ORIENTED X4. DENIES SI. ANXIOUS BUT COOPERATIVE AND PLEASANT. RESPIRATORY WNL. HR SR 70s, BP STABLE, DENIES CP PRESSURE. INDEPENDENT IN THE ROOM AND TO TOILET. 1:1 SITTER AT DOORWAY
[2022-11-26 03:46] LABS: Hematocrit 38.7 % (33.0-51.0); Mean Corpuscular HGB 27.3 pg (26.0-34.0); Mean Corpuscular HGB Conc 33.6 g/dL (31.5-36.5); Mean Corpuscular Volume 81 fL (80-100); Mean Platelet Volume 10.9 fL (9.1-12.4); Platelet Count 230 K/mm3 (150-400); RDW Coefficient Variation 17.6 % (11.7-14.2); RDW Standard Deviation 52.2 fL (35.1-46.3); Red Blood Cell Count 4.76 M/mm3 (3.80-5.20); White Blood Cell Count 9.78 K/mm3 (4.00-11.30)
[2022-11-26 04:04] LABS: Albumin, Blood 2.7 g/dL (3.4-5.0); Albumin/Globulin Ratio 0.8 (0.8-1.8); Bilirubin, Total 0.4 mg/dL (0.1-1.0); Calcium, Blood 8.3 mg/dL (8.5-10.1); Creatinine, Blood 0.67 mg/dL (0.40-1.00); Globulin, Blood 3.2 g/dL (2.2-4.0); Magnesium, Blood 1.9 mg/dL (1.6-2.4); Percent Saturation 90.5 % (15.0-50.0); Phosphorus, Blood 3.1 mg/dL (2.5-4.9); Potassium, Blood 3.5 mmol/L (3.5-5.5); Total Protein, Blood 5.9 g/dL (6.4-8.2)
--- NOTE | 2022-11-26 05:17 | NUR ---
SHIFT SUMMARY PATIENT REMAINS ALERT AND ORIENTED X4, SOME ANXIETY AT TIMES, MEDICATED PER EMAR. RESPIRATORY WNL. HR SR 80s, BP STABLE. DENIES CP PRESSURE. INDEPENDENT IN ROOM. DENIES SI
--- NOTE | 2022-11-26 07:01 | NUR ---
Assumed care. Report received from nightshift RN. Pt restin in bed, on RA, alert and oriented. No acute changes overnight, VS stable. Will continue to monitor.
--- NOTE | 2022-11-26 18:20 | NUR ---
Pt rested comfortably throughout shift, independent in room. Alert and oriented, on RA. 1:1 sitter present at all times. Pt seen by Dr. Moreau this shift, plan is to transfer to in patient psych facility for remainder of hold. Pt aware of plan and cooperative with care. Grantroseradha ChauhanHumble placed on facesheet at patient request, contact info in chart. VS stable, no acute changes this shift. Pt denies SI. See assessment for further details, will continue to monitor and report off to oncoming RN.
--- NOTE | 2022-11-26 21:21 | NUR ---
ASSUMED CARE. PT STARTLED VERY EASILY WHEN TRYING TO AWAKEN HER. SHE STATES SHE HAS ALWAYS DONE THAT. IT MADE HER VERY ANXIOUS BUT SHE WAS ABLE TO CALM DOWN SHORTLY AFTERWARDS. DENIES ANY SUCITAL INTENTIONS AT THIS TIME. STATES HAS NORMAL PAIN BUT TOLERABLE. UP TO COMMODE INDEPENDENTLY. TOOK ALL MEDS. VS STABLE. 1:[address]
--- NOTE | 2022-11-27 01:08 | NUR ---
PT AWAKE, GOT UP TO THE BATHROOM, ONCE BACK IN BED C/O NAUSEA. CRACKERS GIVEN. CALL PLACED TO DR. GODINEZ FOR SOME ZOFRAN.
--- NOTE | 2022-11-27 06:47 | NUR ---
SHIFT SUMMARY: PT REMAINED COOPERATIVE WITH NO ACUTE CHANGES THIS SHIFT. ALL MEDS WERE TAKEN. VS REMAINED STABLE. SHE DID HAVE ONE EPISODE OF NAUSEA AT WHICH ZOFRAN WAS GIVEN. 1:[address]
--- NOTE | 2022-11-27 08:00 | NUR ---
ADDENDUM: SUICIDE RISK ASSESSMENT NO LONGER INDICATING NEED FOR HIGH RISK SUICIDE PRECAUTIONS. DR. GILLETTE TO SEE PT TO FURTHER EVALUATE RISK AND ALSO TO DETERMINE IF INPATIENT PSYCH IS NECESSARY.
--- NOTE | 2022-11-27 08:00 | NUR ---
PT A&OX4. PLEASANT AND COOPERATIVE WITH CARE. PT UP INDEPENDENTLY IN THE ROOM AND ABLE TO COMMUNICATE HER NEEDS WELL. PT REPORTS FEELING "ANXIOUS" THIS AM. MED WITH VISTARIL PER PT REQUEST-SEE EMAR. PT HR AND BP ELEVATED WITH ANXIETY. WILL RE-CHECK LATER THIS AM. LUNGS CLEAR. NO NOTED RESP DISTRESS. SATS>90% ON RA. NO GI DISTRESS. PT DENIES SI AND IS AGREEABLE TO INPATIENT PSYCH IF INDICATED.
--- NOTE | 2022-11-27 09:05 | NUR ---
PT STATES THAT SHE IS NO LONGER ANXIOUS, BUT IS NOW REPORTING LEFT HIP PAIN. MEDICATED WITH FLEXERIL PER PT REQUEST. BP 115/86 AND HR 80'S SR. PT POSITINED HERSELF TO COMFORT ON HER RIGHT SIDE.
--- NOTE | 2022-11-27 09:48 | NUR ---
PT APPEARS TO BED SLEEPING. NO NOTED DISTRESS AT THIS TIME.
--- NOTE | 2022-11-27 11:15 | NUR ---
NO ACUTE CHANGES. REPORT GIVEN TO SVETLANA HERNANDEZ. PT TRANSFERED TO ROOM 354-STILL HIGH RISK AND 1:1 SITTER AT THIS POINT.
--- NOTE | 2022-11-27 11:45 | NUR ---
PT ARRIVED TO ROOM FROM ICU WITH SITTER. ROOM MITIGATED AND PT INSTRUCTED TO CALL WHEN SHE NEEDS TO USE RESTROOM. PLEASANT AND COMMUNICATIVE.
[2022-11-27] MEDS ORDERED: MELATONIN5 M1 PO (12:56)
[2022-11-27] MEDS ORDERED: MIRTAZAPINE7.5 M1 PO (12:57)
[2022-11-27] MEDS ORDERED: ONDA4ODT MM (12:58)
[2022-11-27] MEDS ORDERED: EUTHYROX125 MCG PO (12:59)
--- NOTE | 2022-11-27 15:08 | NUR ---
DISCHARGE INSTRUCTIONS COMPLETED AND DISCUSSED WITH PT EXPRESSING UNDERTANDING. SCRIPTS FAXED TO [facility]. AMBULATED TO [facility] WITH S.O.
== END 2022-11-27 13:53 | disposition home or self-care (01) | DRG 917 ==
LOC: ER 16:25 → EOR 16:26 → ER 16:26 → ICUW 20:45 → MEDS 11-27 11:35
PROVIDERS: Family Medicine; Student in an Organized Health Care Education/Training Program; ADMIT Internal Medicine
PROC: 3E033XZ Introduction of Vasopressor into Peripheral Vein, Percutaneous Approach (ICD-10-PCS; principal; 2022-11-24)
PROC: 4A133R1 Monitoring of Arterial Saturation, Peripheral, Percutaneous Approach (ICD-10-PCS; 2022-11-24)
DX: T39.312A Poisoning by propionic acid derivatives, intentional self-harm, initial encounter (principal); G92.8 Other toxic encephalopathy; R65.10 Systemic inflammatory response syndrome (SIRS) of non-infectious origin without acute organ dysfunction; R45.851 Suicidal ideations; F33.9 Major depressive disorder, recurrent, unspecified; T51.92XA Toxic effect of unspecified alcohol, intentional self-harm, initial encounter; E03.9 Hypothyroidism, unspecified; F17.210 Nicotine dependence, cigarettes, uncomplicated; I95.9 Hypotension, unspecified; F12.10 Cannabis abuse, uncomplicated; F10.129 Alcohol abuse with intoxication, unspecified; G43.909 Migraine, unspecified, not intractable, without status migrainosus; Y90.8 Blood alcohol level of 240 mg/100 ml or more; E05.90 Thyrotoxicosis, unspecified without thyrotoxic crisis or storm; Z20.822 Contact with and (suspected) exposure to COVID-19; Z88.0 Allergy status to penicillin; Z98.890 Other specified postprocedural states; Z88.8 Allergy status to other drugs, medicaments and biological substances; Z79.899 Other long term (current) drug therapy; Z78.1 Physical restraint status
CPT/HCPCS: 0241U; 36415; 80048; 80053; 81003; 81025; 82652; 82728; 82803; 83540; 83550; 83690; 83735; 84100; 84439; 84443; 85025; 85027; 85610; 93005; 93010; 96361; 96374; 96375; 99285-25; A9270; G0480; J1650; J1790; J2060; J3411; J7030; J7060; J7120; Q0177

== ENCOUNTER → 2022-12-19 | Outpatient (CLI) | payer OTHER ==
[~2022-12-19] MED LIST changes: +EUTHYROX125 MCG PO; +MELATONIN5 M1 PO; +MIRTAZAPINE7.5 M1 PO; +ONDA4ODT MM
== END | disposition home or self-care (01) ==
LOC: LAB HH 13:43
DX: E03.9 Hypothyroidism, unspecified (principal)
CPT/HCPCS: 84443

== ENCOUNTER 2023-01-18 16:40 | Emergency (ER) | payer OTHER ==
[~2023-01-18] VITALS: Ht 157.5 cm; Wt 68.0 kg
[2023-01-18 16:44] VITALS: BP 132/93
== END 2023-01-18 17:33 | disposition home or self-care (01) ==
LOC: ER 16:40
DX: S61.216A Laceration without foreign body of right little finger without damage to nail, initial encounter (principal); W22.8XXA Striking against or struck by other objects, initial encounter; Z88.0 Allergy status to penicillin; Z88.6 Allergy status to analgesic agent; Z79.899 Other long term (current) drug therapy; E03.9 Hypothyroidism, unspecified; F17.200 Nicotine dependence, unspecified, uncomplicated
CPT/HCPCS: 12001; 73140; 99283-25

== ENCOUNTER → 2023-03-04 | Outpatient (CLI) | payer OTHER ==
[2023-03-04 14:50] LABS: Ferritin, Serum 7 ng/mL (8-252); Iron Serum 23 ug/dL (50-170); LDL/HDL RATIO 1.7; Percent Saturation 6.1 % (15.0-50.0); Total Iron Binding Capacity 380 ug/dL (250-450)
[2023-03-04 14:51] LABS: Alanine Aminotransfer (ALT/SGP 34 U/L (12-78); Albumin, Blood 3.3 g/dL (3.4-5.0); Albumin/Globulin Ratio 0.8 (0.8-1.8); Alk Phos 102 U/L (50-136); Anion Gap 3 mmol/L (6-16); Aspartate Aminotrans (AST/SGOT 27 U/L (12-37); Bilirubin, Total 0.3 mg/dL (0.1-1.0); Blood Urea Nitrogen 7 mg/dL (8-24); Bun/Creatinine Ratio 8.3 (12.0-20.0); CHOL/HDL RATIO 3.1; CO2, Blood 28 mmol/L (21-32); Calcium, Blood 9.1 mg/dL (8.5-10.1); Chloride, Blood 108 mmol/L (98-108); Cholesterol 142 mg/dL (50-200); Creatinine, Blood 0.84 mg/dL (0.40-1.00); Glomerular Filtration Rate 87 (60-); Glucose, Blood 109 mg/dL (70-99); HDL Cholesterol 46 mg/dL (>39); Low Density Lipoprotein Chol 76 mg/dL (0-110); Potassium, Blood 4.2 mmol/L (3.5-5.5); Sodium, Blood 139 mmol/L (136-145); Total Protein, Blood 7.3 g/dL (6.4-8.2); Triglycerides 98 mg/dL (30-160); Very Low Density Lipoprot Chol 19 mg/dL (6-32)
== END | disposition home or self-care (01) ==
LOC: LAB 12:03 → LAB SHORT 12:03
PROVIDERS: Family Medicine
DX: E03.9 Hypothyroidism, unspecified (principal); D50.9 Iron deficiency anemia, unspecified; E78.00 Pure hypercholesterolemia, unspecified
CPT/HCPCS: 80053; 80061; 82728; 83540; 83550; 84443

== ENCOUNTER 2023-08-14 06:15 | Day surgery (SDC) | payer OTHER ==
[~2023-08-14] VITALS: Ht 157.5 cm; Wt 81.9 kg
[2023-08-14 08:42] VITALS: BP 134/95
== END 2023-08-14 08:44 | disposition home or self-care (01) ==
LOC: ORSCSDS 06:15
PROVIDERS: Internal Medicine Gastroenterology
PROC: 0DB68ZX Excision of Stomach, Via Natural or Artificial Opening Endoscopic, Diagnostic (ICD-10-PCS; principal; 2023-08-14 08:00)
PROC: 0DB58ZX Excision of Esophagus, Via Natural or Artificial Opening Endoscopic, Diagnostic (ICD-10-PCS; principal; 2023-08-14 08:00)
DX: K22.70 Barrett's esophagus without dysplasia (principal); K44.9 Diaphragmatic hernia without obstruction or gangrene; K57.30 Diverticulosis of large intestine without perforation or abscess without bleeding; K21.9 Gastro-esophageal reflux disease without esophagitis; K76.6 Portal hypertension; K31.89 Other diseases of stomach and duodenum; E78.5 Hyperlipidemia, unspecified; Z87.891 Personal history of nicotine dependence; Z79.899 Other long term (current) drug therapy
CPT/HCPCS: 88305; 88342; J2704; J7120

== ENCOUNTER 2023-10-07 09:16 | Day surgery (SDC) | payer OTHER ==
[~2023-10-07] VITALS: Ht 157.5 cm; Wt 82.9 kg
[~2023-10-07 09:16] MED LIST changes: +ABILIFY MYCITE10 M2 PO; +ATOR40TA PO; +Amlodipine Bes2.5 MG PO; +FAMO20 PO; +HYDHCL25 PO; +LEVSOD100 PO; +MELA3 PO; -MELATONIN5 M1 PO; +MIRT15 PO; -MIRTAZAPINE7.5 M1 PO; +PRAZ1 PO; +Seroquel Xr50 MG PO; +VITAMIN D350 MC3 PO
[2023-10-07 11:33] VITALS: BP 118/94
== END 2023-10-07 11:28 | disposition home or self-care (01) ==
LOC: ORSCSDS 09:16
PROVIDERS: Specialist
PROC: 0DBN8ZX Excision of Sigmoid Colon, Via Natural or Artificial Opening Endoscopic, Diagnostic (ICD-10-PCS; principal; 2023-10-07 11:00)
PROC: 0DBL8ZX Excision of Transverse Colon, Via Natural or Artificial Opening Endoscopic, Diagnostic (ICD-10-PCS; principal; 2023-10-07 11:00)
DX: D50.9 Iron deficiency anemia, unspecified (principal); D12.3 Benign neoplasm of transverse colon; D12.5 Benign neoplasm of sigmoid colon; K64.8 Other hemorrhoids; K57.30 Diverticulosis of large intestine without perforation or abscess without bleeding; E78.5 Hyperlipidemia, unspecified; F17.210 Nicotine dependence, cigarettes, uncomplicated; F41.9 Anxiety disorder, unspecified; B19.20 Unspecified viral hepatitis C without hepatic coma; K21.9 Gastro-esophageal reflux disease without esophagitis; Z79.899 Other long term (current) drug therapy
CPT/HCPCS: 88305; J2704; J7120

== ENCOUNTER 2024-03-29 07:49 | Inpatient (IN) | payer OTHER ==
[2024-03-29] VITALS (31 sets, daily range): BP systolic 112–148; BP diastolic 73–114
[~2024-03-29] VITALS: Ht 157.5 cm; Wt 86.5 kg
[~2024-03-29 07:49] MED LIST changes: +VITAMIN D310 MC4 PO
[2024-03-29] MEDS ORDERED: Lactated Ringer's 1,000 ML IV SCH ×2 (08:15→11:50)
[2024-03-29] MEDS ORDERED: Acetaminophen 500 MG Tab PO SCH (08:15)
--- NOTE | 2024-03-29 09:07 | NUR ---
History, Chart, Medications and Allergies reviewed before start of procedure. Pre-Op teaching done. Pt verbalizes understanding. Ambulatory in Day Surgery WITH STEADY GAIT. DENTURES REMOVED AND PLACED IN PACU WITH PT IDENTIFYING STICKER. BELONGINGS PLACED UNDER THE GURN. CALL LIGHT IN REACH. PT DENIES ANY FURTHER NEEDS AT THIS TIME.
[2024-03-29] MEDS ORDERED: Midazolam HCl 1MG / ML 2ML Vial IV ONE (09:15)
[2024-03-29] MEDS ORDERED: Bupivacaine 0.5% HCl 5 MG/ML 30MLVIAL ONE (09:23)
[2024-03-29] MEDS ORDERED: FentaNYL Citrate 50 MCG/ML 2 ML Injection ONE (09:33)
[2024-03-29] MEDS ORDERED: propofoL 20 ML IV ONE (09:33)
[2024-03-29] MEDS ORDERED: Rocuronium Bromide 10 MG/ML 5ML Injection IV ONE ×2 (09:37→11:22)
[2024-03-29] MEDS ORDERED: Dexamethasone Sod Phos 10 MG/ML 1ML VIAL ONE (09:51)
[2024-03-29] MEDS ORDERED: Ondansetron HCl 2 MG / ML 2ML Vial ONE ×2 (09:51→13:29)
[2024-03-29] MEDS ORDERED: Phenylephrine HCl 100 MCG/ML-NS 10MLSYR (1MG/10ML) ONE (09:51)
[2024-03-29] MEDS ORDERED: ePHEDrine Sulfate 50 MG/ML 1ML Injection ONE (09:52)
[2024-03-29] MEDS ORDERED: Phenylephrine HCl 10mg/ml 1 ml Vial ONE (11:22)
[2024-03-29] MEDS ORDERED: Sugammadex Sodium 200 MG/2ML SDV (100 MG/ML) ONE ×2 (11:29→12:14)
[2024-03-29] MEDS ORDERED: Ketorolac Tromethamine 30mg Vial ONE (11:29)
[2024-03-29] MEDS ORDERED: HYDROmorphone HCl/Pf 1MG SYR IV PRN (11:45)
[2024-03-29] MEDS ORDERED: Prochlorperazine Edisylate 10 mg Vial IV PRN (11:50)
[2024-03-29] MEDS ORDERED: OxyCODONE HCL 5 MG TAB PO PRN (11:50)
[2024-03-29] MEDS ORDERED: Acetaminophen 325 MG TABLET PO PRN (11:50)
[2024-03-29] MEDS ORDERED: Ondansetron HCl 2 MG / ML 2ML Vial IV PRN (11:50)
[2024-03-29] MEDS ORDERED: Ipratropium/Albuterol SulF 2.5-0.5MG/3 ML Amp ONE (11:51)
[2024-03-29] MEDS ORDERED: Cyclobenzaprine HCl 10 MG Tab PO PRN (11:55)
[2024-03-29] MEDS ORDERED: HyDROXyzine HCl 25 MG Tab PO PRN (11:55)
[2024-03-29] MEDS ORDERED: Albuterol 2.5 MG/3 ML VIAL ONE (12:15)
[2024-03-29] MEDS ORDERED: HYDROmorphone HCl/Pf 1MG SYR ONE (12:53)
[2024-03-29] MEDS ORDERED: Albuterol 2.5 MG/3 ML VIAL INH PRN (13:05)
[2024-03-29] MEDS ORDERED: Ipratropium/Albuterol SulF 2.5-0.5MG/3 ML Amp INH SCH (13:05)
--- NOTE | 2024-03-29 17:42 | NUR ---
SHIFT SUMMARY: PT ARRIVED TO PCU 9 FROM PACU @1350. PT ABLE TO TRANSFER FROM [facility] TO BED INDEPENDENTLY. PT A&O X4. PLEASANT AND COOPERATIVE WITH CARE. PT HAS 4 ABDOMINAL INCISION SITES THAT ARE OPEN TO AIR AND C/D/I. PT C/O 5-8/10 PAIN THROUGHOUT SHIFT. MEDICATED TWICE WITH PRN OXYCODONE AND ONE WITH PRN DILAUDID. SB ASSIST c TRANSFERS. PT ARRIVED TO FLOOR ON 3L 02. PT MAINTAINED SATS BETWEEN 88-95% ON 3L. PT CURRENTLY ON 4L VIA [place]. POST OP VITALS OBTAINED. PT TOLERATING CLEAR LIQUID DIET. MEDICATED ONCE FOR N/V SHORTLY AFTER ARRIVAL TO FLOOR. LR STARTED @ 75/HR. SCDS IN PLACE. TELE IN PLACE RUNNING SINUS RHYTHM. CALL LIGHT IN REACH. BED IN LOWEST POSITION.
[2024-03-29] MEDS ORDERED: Melatonin 3 MG Tab PO SCH (21:00)
[2024-03-29] MEDS ORDERED: QUEtiapine Fumarate 50 MG TAB PO SCH (21:00)
[2024-03-29] MEDS ORDERED: Atorvastatin 40 MG Tab PO SCH (21:00)
[2024-03-29] MEDS ORDERED: Prazosin HCl 1 MG Cap PO SCH (21:00)
[2024-03-29] MEDS ORDERED: AmLODIPine Besylate 5 MG Tab PO SCH (21:00)
[2024-03-30 00:27] VITALS: BP 120/83
[2024-03-30 04:04] VITALS: BP 104/64
[2024-03-30 04:50] LABS: Hematocrit 31.5 % (33.0-51.0); Mean Corpuscular HGB 24.9 pg (26.0-34.0); Mean Corpuscular HGB Conc 31.7 g/dL (31.5-36.5); Mean Corpuscular Volume 78 fL (80-100); Mean Platelet Volume 10.3 fL (9.1-12.4); Platelet Count 262 K/mm3 (150-400); RDW Coefficient Variation 21.4 % (11.7-14.2); RDW Standard Deviation 60.9 fL (35.1-46.3); Red Blood Cell Count 4.02 M/mm3 (3.80-5.20); White Blood Cell Count 11.83 K/mm3 (4.00-11.30)
[2024-03-30 05:32] LABS: Bun/Creatinine Ratio 11.4 (12.0-20.0); Calcium, Blood 8.6 mg/dL (8.5-10.1); Creatinine, Blood 0.79 mg/dL (0.40-1.00); Potassium, Blood 4.4 mmol/L (3.5-5.5)
[2024-03-30] MEDS ORDERED: Levothyroxine Sodium 0.1 MG Tab PO SCH (06:00)
--- NOTE | 2024-03-30 06:06 | NUR ---
SHIFT SUMMARY A/Ox4 AND COOPERATIVE WITH CARE. CAN BE VERY ANXIOUS AT TIMES, BUT IS ABLE TO MAKE HER NEEDS KNOWN. CARDIAC, REMAINS IN SR-ST 80-100'S WITH NO REPORTS OF CP, PRESSURE OR PALPTIATIONS. SBP RANGING 100-120'S. RESPIRATORY, MAINTAINING SPO2 >90% ON 1L NC. O2 DEMANDS INCREASED DURING THE NIGHT TO 5-6L, BUT ENCOURAGED PT TO USE INCENTIVE SPIROMETRY T/O THE NIGHT. PT WAS ABLE TO BE SUCCESSFULLY TITRATED TO 1L. CONTINUES TO ENDORSE SOME EXERTION DYSPNEA HOWEVER. GI/ ABLE TO AMBULATE TO BATHROOM WITH MINIMAL STAFF ASSISTANCE. ABD PUNCTURE SITE REMAIN C/D/I. PAIN WELL MANAGED WITH PRN PAIN MEDICATIONS. LR CONTINUES TO INFUSE ORDERED PER EMAR. EARLY IN SHIFT, LR NOTED TO HAVE BARELY INFILTRATED INTO RAC. IV PULLED AND HEAT WRAP PLACED ON SITE. DR. DURÁN MADE AWARE. NO NEW ORDERS AT THIS TIME, WILL REPORT TO ONCOMING RN. LEILANI KEMP OF THIS NOTE.
[2024-03-30 07:20] VITALS: BP 112/75
[2024-03-30] MEDS ORDERED: Enoxaparin 40 MG/0.4 ML SYR SC SCH (09:00)
[2024-03-30] MEDS ORDERED: Mirtazapine 15 MG Tab PO SCH (09:00)
[2024-03-30] MEDS ORDERED: ARIPiprazole 10 MG Tab PO SCH (09:00)
[2024-03-30 09:07] LABS: Base Excess Venous -1.4 mmol/L; Bicarbonate Venous 22.3 mmol/L (24.0-30.0); PCO2 Venous 42.1 mmHg (38-42); pH Blood Venous 7.36 (7.34-7.37)
--- NOTE | 2024-03-30 09:26 | NUR ---
HOSP CONSULTED PER DR LEWIS. AT THE START OF THE SHIFT THE PT WAS ON 2LNC. WHEN SHE WOKE UP SHE BEGAN TO DESATURATE AND SUSTAIN IN THE LOW 80'S. DR. LEWIS AT BEDSIDE WHEN TITRATING THE PT UP TO 4-5LNC. SHE ORDERED FOR THE LR TO BE D/C'D AND THAT WE GET THE PT A BREATHING TREATMENT. WHEN RT WAS IN THE ROOM THE PT ENDED UP NEEDING 12L HFNC. DR. LEWIS NOTIFIED OF OXYGEN INCREASE, AND SHE ORDERED A HOSP CONSULT AND A STAT CT PE. DR. CARLSON CONSULTED AND CAME TO EVALAUTE THE PT. VBG TAKEN, BNP ORDERED, TROPONIN ORDERED, AND EKG DONE. WE ARE AWAITING FOR CT PE RESULTS AT THIS TIME. SEE NOTES FOR UPDATES.
[2024-03-30 11:14] VITALS: BP 122/79
[2024-03-30] MEDS ORDERED: Ipratropium/Albuterol SulF 2.5-0.5MG/3 ML Amp INH SCH (13:00)
--- NOTE | 2024-03-30 13:47 | NUR ---
UPDATE THIS BREAK NURSE ASSUMING CARE OF PT WHILE PT PRIMARY NURSE AT LUNCH. PT DESAT TO 84% WHILE SLEEPING W/ 9L HI-LASHONDA NC IN PLACE. PT WOKEN & O2 INCREASED TO 11L HI-LASHONDA NC. MD CARLSON TO BEDSIDE TO UPDATE PT ON CT FINDINGS & ENCOURAGE PT USE OF INCENTIVE SPIROMETER. PT THEN W/ NEED TO USE RESTROOM. PT ENCOURAGED TO USE BSC INSTEAD OF AMBULATE INTO BATHROOM D/T SOB & OXYGEN NEEDS. PT AGREEABLE. PT DESAT TO 86% W/ GETTING UP TO BSC. O2 INCREASED TO 13L HI LASHONDA NC. PT BACK IN BED, DEEP BREATHING. SPO2 90-92% W/ 13L HI-LASHONDA NC IN PLACE.
--- NOTE | 2024-03-30 14:22 | NUR ---
UPDATE: DR. LEWIS CALLED FOR AN UPDATE ON THE PT SHORTLY AFTER DR. CARLSON LEFT BEDSIDE. DR. LEWIS ORDERED A RESP PANEL AND BIPAP. RT IN THE ROOM SETTING UP BIPAP AT THIS TIME. THE RESP PANEL SAMPLE WAS SENT TO LAB. SEE NOTES FOR UPDATES.
[2024-03-30 15:16] VITALS: BP 135/90
--- NOTE | 2024-03-30 15:44 | NUR ---
THE PT HAD A PANIC ATTACK AND WAS PULLING AT HER MASK. WE HAD TO TAKE THE MASK OFF AND PUT HER ON 15LHFNC WHILE I CALLED DR. CARLSON TO GET AN ANXIETY MEDICATION. BONNIE SYKES CALLED TO BE WITH THE PT DURING THIS PANIC ATTACK WHILE I MADE THE PHONE CALL. AWAITING FOR MEDICATIONS AT THIS TIME.
[2024-03-30] MEDS ORDERED: LORazepam 2 MG/ML 1ML Injection IV PRN (15:50)
[2024-03-30 16:43] LABS: Adenovirus Not Detected (NOT DETECT); Bordetella pertussis Not Detected (NOT DETECT); Chlamydophila pneumoniae Not Detected (NOT DETECT); Coronavirus 229E Not Detected (NOT DETECT); Coronavirus HKU1 Not Detected (NOT DETECT); Coronavirus NL63 Not Detected (NOT DETECT); Coronavirus OC43 Not Detected (NOT DETECT); Human Metapneumovirus Not Detected (NOT DETECT); Human Rhinovirus/Enterovirus Not Detected (NOT DETECT); Influenza A/2009-H1 Not Detected (NOT DETECT); Influenza A/H1 Not Detected (NOT DETECT); Influenza A/H3 Not Detected (NOT DETECT); Influenza B Not Detected (NOT DETECT); Mycoplasma pneumoniae Not Detected (NOT DETECT); Parainfluenza Virus 1 Not Detected (NOT DETECT); Parainfluenza Virus 2 Not Detected (NOT DETECT); Parainfluenza Virus 3 Not Detected (NOT DETECT); Parainfluenza Virus 4 Not Detected (NOT DETECT); Respiratory Syncytial Virus Not Detected (NOT DETECT); SARS-Cov-2 (COVID-19), BioFire Not Detected (NOT DETECT)
[2024-03-30] MEDS ORDERED: Azithromycin 500 MG in NS 250 ML IV SCH (17:00)
[2024-03-30] MEDS ORDERED: CefTRIAXone Sodium 1,000 MG in NS 100 ML IV SCH (17:00)
--- NOTE | 2024-03-30 17:09 | NUR ---
UPDATE WITH AZITHROMYCIN: I STARTED THE PT ON HER AZITHROMYCIN. AFTER 4 MINUTES INTO THE INFUSION SHE GOT EXTREMELY NAUSEATED AND ALMOST VOMITED. I HAD TO TAKE HER OFF OF THE BIPAP AND PUT HER BACK ON 15L HFNC. I MEDICATED THE PT WITH ZOFRAN. WHEN I CALLED DR. CARLSON TO SEE IF HE WANTED ME TO CONTINUE TO INFUSION HE SAID NOT THE AZITHROMYCIN. I WILL TRY THE ROCEPHIN AND MONITOR FOR SYMPTOMS. HER ALLERGY TO PENICILLIN IS REPORTED HIVES. SEE NOTES FOR UPDATES.
--- NOTE | 2024-03-30 18:21 | NUR ---
END OF SHIFT SUMMARY THE PT REMAINS A&OX4, AND CALLS APPROPRIATELY. SHE HAS BEEN FIGHTING WITH ANXIETY SINCE BEING ON THE BIPAP. SEE PREVIOUS NOTES. I MEDICATED THE PT WITH 1MG IV ATIVAN AND SHE WAS ABLE TO CALM DOWN AND TOLERATE THE BIPAP. ATIVAN REMAINS 1-2MG PRN IN THE EMAR. HER BIPAP SETTING ARE CURRENTLY 12/5 @ 50% AND SP02 >93%. DR. LEWIS WOULD LIKE THE PT TO REMAIN ON THE BIPAP AT THIS TIME TO HELP KEEP HER LUNGS INFLATED. SHE IS NPO, BUT SHE CAN TAKE SHORT BREAKS FOR SIPS OF WATER PER DR. LEWIS. ON TELE SHE HAS BEEN SR 80'S-90'S. THE PT HAS NEEDED MEDICATED TWICE THIS SHIFT FOR ABD PAIN R/T HER HIATAL HERNIA REPAIR. HER INCISIONS HAS SOME SLIGHT BRUISING, BUT THEIR IS NO DISCHARGE, REDNESS, OR SWELLING. THE PT HAD SOME EXTREME NAUSEA WHEN RECIEVING AZITHROMYCIN, AND WAS MEDICATED WITH ZOFRAN. SHE TOLERATED TOLERATED VIBRAMYCIN AND ROCEPHIN. HER NEXT OF KIN, AUGUST, CAME TO BEDSIDE AND WAS UPDATED ON CARE. SEE NOTES FOR ANY UPDATES.
[2024-03-30 19:28] VITALS: BP 145/90
[2024-03-31] VITALS (8 sets, daily range): BP systolic 96–138; BP diastolic 67–115
[2024-03-31 04:28] LABS: BASOPHILS ABSOLUTE AUTO 0.03 K/mm3 (0.00-0.23); BASOPHILS PERCENT AUTO 0 % (0-2); EOSINOPHILS ABSOLUTE AUTO 0.08 K/mm3 (0.00-0.68); EOSINOPHILS PERCENT AUTO 1 % (0-6); Hematocrit 31.8 % (33.0-51.0); IMMATURE GRAN ABSOLUTE AUTO 0.03 K/mm3 (0.00-0.10); IMMATURE GRAN PERCENT AUTO 0 % (0-1); LYMPHOCYTES ABSOLUTE AUTO 1.84 K/mm3 (0.84-5.20); LYMPHOCYTES PERCENT AUTO 26 % (21-46); MONOCYTES ABSOLUTE AUTO 0.45 K/mm3 (0.16-1.47); MONOCYTES PERCENT AUTO 6 % (4-13); Mean Corpuscular HGB 24.4 pg (26.0-34.0); Mean Corpuscular HGB Conc 31.4 g/dL (31.5-36.5); Mean Corpuscular Volume 78 fL (80-100); Mean Platelet Volume 10.5 fL (9.1-12.4); NEUTROPHILS ABSOLUTE AUTO 4.68 K/mm3 (1.96-9.15); NEUTROPHILS PERCENT AUTO 66 % (41-73); Platelet Count 252 K/mm3 (150-400); RDW Coefficient Variation 21.5 % (11.7-14.2); RDW Standard Deviation 60.1 fL (35.1-46.3); Red Blood Cell Count 4.09 M/mm3 (3.80-5.20); White Blood Cell Count 7.11 K/mm3 (4.00-11.30)
[2024-03-31 05:00] LABS: Albumin, Blood 3.2 g/dL (3.4-5.0); Anion Gap 7 mmol/L (3-11); Blood Urea Nitrogen 5 mg/dL (8-24); Bun/Creatinine Ratio 6.8 (12.0-20.0); CO2, Blood 27 mmol/L (21-32); Calcium, Blood 8.2 mg/dL (8.5-10.1); Chloride, Blood 109 mmol/L (98-108); Creatinine, Blood 0.74 mg/dL (0.40-1.00); Glomerular Filtration Rate 100 (60-); Glucose, Blood 115 mg/dL (70-99); Phosphorus, Blood 2.6 mg/dL (2.5-4.9); Potassium, Blood 3.7 mmol/L (3.5-5.5); Sodium, Blood 139 mmol/L (136-145)
--- NOTE | 2024-03-31 05:48 | NUR ---
SHIFT SUMMARY ASSUMED CARE OF PT AT 1900. PT IS A/OX4. AFFECT FLAT. LUNG SOUNDS HAVE CRACKLES AT THE BASES. PT ON HEATED HIGH FLOW. PT ONLY ABLE TO WEAR THE BIPAP FOR A TOTAL OF 5-6 HOURS. PT WAS A 1P SBA TO BSC. PT C/O HEADACHE THIS AM, MEDICATED PER EMAR. PT C/O ABD PAIN FROM SURGERY BUT DIDNT NEED MEDICATION FOR PAIN.
[2024-03-31] MEDS ORDERED: Furosemide 10 MG/ML 4ML Vial IV ONE (08:30)
--- NOTE | 2024-03-31 10:50 | NUR ---
0745 PT A/OX 4 DURING MORNING ASSESSMENT. SATS STABLE ON THE 13L HFNC, NO RESP DISTRESS NOTED. THIS RN EXITED PT ROOM AND THE DOOR CLSED BEHIND THIS RN. PT CALL LIGHT WENT OFF [id number] 2-3 MINUTES AFTER DOOR CLOSED. THIS RN TO PT'S ROOM TO SEE WHAT PT NEEDED. PT TACHYPNEIC AND IN A ANXIOUS STATE. PT STATED "DON'T CLOSE MY DOOR. WHY DID YOU CLOSE MY DOOR?" PT WAS SITTING AT EDGE OF BED AT THIS TIME. THIS RN INFORMED PT THAT HTE DOOR EASILY CLOSES IN HER ROOM AND THAT THIS RN ONLY INTENDED TO LEAVE DOOR CRACKED TO HELP CUT DOWN ON THE SOUNDS FROM THE HALLWAY. PT REPEATED AGAIN "DON'T SHUT MY DOOR." PT INSTRUCTED TO SLOW HER BREATHING HER RESP RATE WAS AT 28. PT ABLE TO SLOW HER BREATHING.
--- NOTE | 2024-03-31 14:42 | NUR ---
PT SATS AT 99% ON HFNC 55L 70% WHILE SLEEPING. PT FIO2 TITRATED TO 50% AT 1430, SATS STABLE AT 96%.
--- NOTE | 2024-03-31 17:45 | NUR ---
SHIFT SUMMARY PT A/OX4 AND COOPERATIVE OF CARE. PT ABLE TO EXPRESS NEEDS AND CALLS APPROPIATE. PT ON HFNC 55L 70% AT BEGINNING OF SHIFT, TITRATED TO 3L NC, TOLERATING WELL. OTHER VSS THROUGHOUT SHIFT. NO REPORT OF CHEST PAIN/PRESSURE DURING SHIFT. PT REPORTS BREATHING IS "GETTING BETTER". PT UP TO BSC INDEPENDENTLY, TOLERATED WELL. PT EXPRESSED THAT SHE IS NOT HAPPY WITH THE LIWUIOD DIET, PT EDUCATED THAT ORDER IS FOR HER POST HIATAL HERNIA REPAIR. ECHO DONE TODAY, SEE CHART FOR RESULTS.
--- NOTE | 2024-03-31 17:59 | NUR ---
UPDATE PT SLEEPING IN ROOM AND PULLED OFF HER NC. SATS DOWN TO 81 WHILE ON RA. 3L NC REAPPLIED, SATS AT 93.
[2024-04-01 04:23] VITALS: BP 107/75
--- NOTE | 2024-04-01 04:28 | NUR ---
SHIFT SUMMARY. SHIFT HAS BEEN MOSTLY UNREMARKABLE. PT AOX4, PLEASANT, COOPERATIVE WITH CARE, CALLS APPROPRIATELY, MAKES NEEDS KNOWN. FLAT DEMEANOR AND ANXIOUS AT TIME BUT WELL MANAGED. PAIN ADEQUATELY MANAGED VIA EMAR. STEADY INDEPENDENT TRANSFER TO COMMODE AND CALLS APPROPRIATELY FOR ASSISTANCE. VITALS STABLE, SOMEWHAT SOFT BP BUT MAP MAINTAINS >65. TELE ON THROUGHOUT SHIFT WITH NO ACUTE CHANGES OR EVENTS. O2 HAS REQUIRED BEING TITRATED UP TO 9 L O2 VIA NC WHILE SLEEPING TO MAINTAIN SATURATION 92% OR ABOVE. STILL DESATURATES TO 80s AT TIMES ALTHOUGH INFREQUENTLY AND BRIEFLY. BED LOCKED IN LOWEST POSITION. CALL LIGHT LEFT WITHIN REACH. CONTINUING TO MONITOR.
[2024-04-01 04:37] LABS: BASOPHILS ABSOLUTE AUTO 0.04 K/mm3 (0.00-0.23); BASOPHILS PERCENT AUTO 1 % (0-2); EOSINOPHILS PERCENT AUTO 1 % (0-6); Hematocrit 33.8 % (33.0-51.0); Hemoglobin 10.6 g/dL (11.5-16.0); IMMATURE GRAN ABSOLUTE AUTO 0.03 K/mm3 (0.00-0.10); IMMATURE GRAN PERCENT AUTO 0 % (0-1); LYMPHOCYTES ABSOLUTE AUTO 1.75 K/mm3 (0.84-5.20); LYMPHOCYTES PERCENT AUTO 21 % (21-46); MONOCYTES ABSOLUTE AUTO 0.53 K/mm3 (0.16-1.47); MONOCYTES PERCENT AUTO 6 % (4-13); Mean Corpuscular HGB 24.5 pg (26.0-34.0); Mean Corpuscular HGB Conc 31.4 g/dL (31.5-36.5); Mean Corpuscular Volume 78 fL (80-100); Mean Platelet Volume 10.6 fL (9.1-12.4); NEUTROPHILS ABSOLUTE AUTO 5.93 K/mm3 (1.96-9.15); NEUTROPHILS PERCENT AUTO 71 % (41-73); Platelet Count 246 K/mm3 (150-400); RDW Coefficient Variation 21.4 % (11.7-14.2); RDW Standard Deviation 60.1 fL (35.1-46.3); Red Blood Cell Count 4.32 M/mm3 (3.80-5.20); White Blood Cell Count 8.38 K/mm3 (4.00-11.30)
[2024-04-01 05:17] LABS: Albumin, Blood 3.3 g/dL (3.4-5.0); Anion Gap 8 mmol/L (3-11); Blood Urea Nitrogen 6 mg/dL (8-24); Bun/Creatinine Ratio 6.8 (12.0-20.0); CO2, Blood 27 mmol/L (21-32); Calcium, Blood 8.8 mg/dL (8.5-10.1); Chloride, Blood 106 mmol/L (98-108); Creatinine, Blood 0.88 mg/dL (0.40-1.00); Glomerular Filtration Rate 82 (60-); Glucose, Blood 124 mg/dL (70-99); Phosphorus, Blood 3.9 mg/dL (2.5-4.9); Potassium, Blood 3.7 mmol/L (3.5-5.5); Sodium, Blood 137 mmol/L (136-145)
[2024-04-01 07:27] VITALS: BP 100/86
[2024-04-01 08:50] LABS: PCO2 Arterial 26.7 mmHg (35-45); pH Blood Arterial 7.57 (7.35-7.45)
[2024-04-01 11:43] VITALS: BP 130/82
[2024-04-01] MEDS ORDERED: Furosemide 10 MG / ML 2ML Vial IV ONE (12:30)
--- NOTE | 2024-04-01 13:09 | NUR ---
Pt. is awake in her bed when she welcomes my visit. Nurse Phillip is at bedside caring for the Pt. Facilitate a life review and consider matters of faitht and belief. Pt. displays evidence of being engaged, and aware, when she verbalizes her desire to have her concerns with her lungs addressed, so she can go home. Pt. verbalized gratitude for this introductory visit. Prayed with Pt. and will remain available to her throughout this hospital visit.
--- NOTE | 2024-04-01 15:02 | NUR ---
ASSUMPTION OF CARE Pt sitting up in bed, working on wordsearch puzzle. Alert and oriented x4, denies pain at this time. On 3L per nasal canula.
--- NOTE | 2024-04-01 15:56 | NUR ---
RT decreased oxygen to 2L per nasal canula
[2024-04-01 20:43] VITALS: BP 140/94
--- NOTE | 2024-04-01 20:45 | NUR ---
ASSUMED CARE ASSUMED CARE AT 1900. PT A/O X 4. PT C/O PAIN IN ABD 03/07. PT ENDORSES "FRIENDS" TOLD HER SHE IS NOT BEING DISCHARGED D/T TAKING PAIN MEDS. EDUCATED PT ON HER RESP STATUS AND NEEDING O2 TO WHY SHE HASN'T BEEN DISCHARGED. ALSO EDUCATED ON IS USE AND COUGH/DEEP BREATHING EXERCISES. VSS. IND IN ROOM WITH BRP. CALL LIGHT IN REACH.
[2024-04-01 21:36] VITALS: BP 117/77
--- NOTE | 2024-04-01 21:40 | NUR ---
TRANSFER NOTE PT TRANSFERED TO ROOM 224 FROM PCU. AMBULATED STANDBY TO BED. VSS. PT A/O X4, DENIES SOB AT THIS TIME. CONT PULSE OX ON, 2LNC, O2 SATS 93%. ENCOURAGED INCENTIVE SPIROMETER USE. CALL LIGHT IN REACH.
[2024-04-02 05:33] VITALS: BP 102/77
[2024-04-02 05:38] LABS: BASOPHILS ABSOLUTE AUTO 0.07 K/mm3 (0.00-0.23); BASOPHILS PERCENT AUTO 1 % (0-2); EOSINOPHILS ABSOLUTE AUTO 0.17 K/mm3 (0.00-0.68); EOSINOPHILS PERCENT AUTO 2 % (0-6); Hematocrit 35.6 % (33.0-51.0); Hemoglobin 11.1 g/dL (11.5-16.0); IMMATURE GRAN ABSOLUTE AUTO 0.03 K/mm3 (0.00-0.10); IMMATURE GRAN PERCENT AUTO 0 % (0-1); LYMPHOCYTES PERCENT AUTO 26 % (21-46); MONOCYTES ABSOLUTE AUTO 0.48 K/mm3 (0.16-1.47); MONOCYTES PERCENT AUTO 7 % (4-13); Mean Corpuscular HGB 24.4 pg (26.0-34.0); Mean Corpuscular HGB Conc 31.2 g/dL (31.5-36.5); Mean Corpuscular Volume 78 fL (80-100); Mean Platelet Volume 10.4 fL (9.1-12.4); NEUTROPHILS ABSOLUTE AUTO 4.49 K/mm3 (1.96-9.15); NEUTROPHILS PERCENT AUTO 64 % (41-73); Platelet Count 249 K/mm3 (150-400); RDW Coefficient Variation 21.6 % (11.7-14.2); RDW Standard Deviation 60.2 fL (35.1-46.3); Red Blood Cell Count 4.54 M/mm3 (3.80-5.20); White Blood Cell Count 7.04 K/mm3 (4.00-11.30)
--- NOTE | 2024-04-02 05:47 | NUR ---
SHIFT SUMMARY PT IS A/O X4, IND TO BR. POD4 FOR HIATAL HERNIA REPAIR. PT IS ON 2LNC, O2 SATS >92%, CONT BIOX ON. ENCORAGED INCENTIVE SPIROMETER USE. PT DID DESAT TO 87% AFTER PULLING NC OFF DURING SLEEP BUT O2 SATS RETURNED TO 94% AFTER NC REPLACED. VSS. PT RESTED MOST OF SHIFT. PASSING FLATUS, VOIDING APPROPRIATELY. NO ACUTE CHANGES THIS SHIFT. PT MAY D/C HOME TOMORROW. USING CALL LIGHT APPROPRIATELY.
[2024-04-02 06:07] LABS: Albumin, Blood 3.5 g/dL (3.4-5.0); Anion Gap 9 mmol/L (3-11); Blood Urea Nitrogen 7 mg/dL (8-24); Bun/Creatinine Ratio 7.6 (12.0-20.0); CO2, Blood 28 mmol/L (21-32); Calcium, Blood 9.3 mg/dL (8.5-10.1); Chloride, Blood 105 mmol/L (98-108); Creatinine, Blood 0.92 mg/dL (0.40-1.00); Glomerular Filtration Rate 77 (60-); Glucose, Blood 123 mg/dL (70-99); Phosphorus, Blood 4.3 mg/dL (2.5-4.9); Potassium, Blood 3.6 mmol/L (3.5-5.5); Sodium, Blood 138 mmol/L (136-145)
[2024-04-02 07:03] VITALS: BP 124/105
[2024-04-02] MEDS ORDERED: OXYC5 PO (14:56)
--- NOTE | 2024-04-02 15:20 | NUR ---
DISCHARGE POD 4 HIATAL HERNIA REPAIR WITH FUNDOPLICATION PT HAS REPORTED GOOD PAIN CONTROL DURING SHIFT. TOLERATING FULL LIQUID DIET WELL, NO NAUSEA. CONTINUES TO PASS GAS. AMBULATING WELL. ABLE TO WEAN OFF OF OXYGEN. INCISION REMAIN CDI. ALL INSTRUCTIONS GONE OVER WITH PATIENT, ALL QUESTIONS ANSWERED. IV'S REMOVED WNL. CURRENTLY AWAITING HER RIDE TO BE HERE FOR DISCHARGE.
== END 2024-04-02 15:42 | disposition home or self-care (01) | DRG 939 ==
LOC: ORSCMMR 07:49 → ORD 10:00 → ORSCMMR 10:00 → SURS 11:44 → PCU 13:59 → SURS 04-02 01:21 → ORD 04-26 07:30
PROVIDERS: Family Medicine; ADMIT Surgery
PROC: 8E0W4CZ Robotic Assisted Procedure of Trunk Region, Percutaneous Endoscopic Approach (ICD-10-PCS; 2024-03-29)
PROC: 0DV44ZZ Restriction of Esophagogastric Junction, Percutaneous Endoscopic Approach (ICD-10-PCS; principal; 2024-03-29 10:00)
PROC: 5A0935A Assistance with Respiratory Ventilation, Less than 24 Consecutive Hours, High Flow/Velocity Cannula (ICD-10-PCS; 2024-03-30)
PROC: 5A09357 Assistance with Respiratory Ventilation, Less than 24 Consecutive Hours, Continuous Positive Airway Pressure (ICD-10-PCS; 2024-03-30)
DX: Z01.810 Encounter for preprocedural cardiovascular examination (principal); J96.01 Acute respiratory failure with hypoxia; J96.02 Acute respiratory failure with hypercapnia; J98.11 Atelectasis; K31.4 Gastric diverticulum; K44.9 Diaphragmatic hernia without obstruction or gangrene; Z88.0 Allergy status to penicillin; Z88.8 Allergy status to other drugs, medicaments and biological substances; K21.00 Gastro-esophageal reflux disease with esophagitis, without bleeding; Z87.891 Personal history of nicotine dependence; M19.90 Unspecified osteoarthritis, unspecified site; K22.70 Barrett's esophagus without dysplasia; Z90.49 Acquired absence of other specified parts of digestive tract; Z98.890 Other specified postprocedural states; Z79.899 Other long term (current) drug therapy; Z79.890 Hormone replacement therapy; M54.50 Low back pain, unspecified; F41.9 Anxiety disorder, unspecified; D64.9 Anemia, unspecified; I08.3 Combined rheumatic disorders of mitral, aortic and tricuspid valves; Z99.81 Dependence on supplemental oxygen
CPT/HCPCS: 0202U; 36415; 36600; 71045; 71260; 80048; 80069; 82803; 82947; 83605; 83880; 84145; 84484; 85025; 85027; 87040; 93005; 93010; 93306; 94640; 94660; 94664; 94760; 94761; 94762; 96365; 96368; 96372; 96375; A9270; G0378; J0456; J0696; J0780; J1100; J1170; J1650; J1885; J1940; J2060; J2250; J2371; J2405; J2704; J3010; J7050; J7120; Q9967

== ENCOUNTER → 2025-02-03 | Outpatient (CLI) | payer OTHER ==
[~2025-02-03] MED LIST changes: +OXYC5 PO
[2025-02-03 17:06] LABS: Free Thyroxine 0.82 ng/dL (0.70-1.60)
[2025-02-03 17:10] LABS: Albumin, Blood 3.6 g/dL (3.4-5.0); Bilirubin, Total 0.2 mg/dL (0.1-1.0); Bun/Creatinine Ratio 13.9 (12.0-20.0); Calcium, Blood 9.5 mg/dL (8.5-10.1); Creatinine, Blood 0.79 mg/dL (0.40-1.00); Globulin, Blood 3.6 g/dL (2.2-4.0); Potassium, Blood 4.6 mmol/L (3.5-5.5); Thyroid Stimulating Hormone 7.21 uIU/mL (0.360-4.800); Total Protein, Blood 7.2 g/dL (6.4-8.2)
[2025-02-06 13:49] LABS: HIV 1,2 COMBO ANTIGEN/ANTIBODY Negative (Negative)
== END ==
LOC: LAB 16:19 → LAB SHORT 16:19
PROVIDERS: Student in an Organized Health Care Education/Training Program
DX: Z11.4 Encounter for screening for human immunodeficiency virus [HIV] (principal); E03.9 Hypothyroidism, unspecified; F31.81 Bipolar II disorder
CPT/HCPCS: 80053; 84439; 84443; 87389